=== PATIENT | female | born 1995 | race American Indian/Alaskan Native ===

== ENCOUNTER 2019-04-06 14:45 | Emergency (ER) | payer OTHER ==
--- NOTE | 2019-04-06 14:56 | Emergency Department Report ---
Chief Complaint: Vaginal Bleeding Stated Complaint: STOMACH/BACK PAIN/VAGINAL BLEEDING Time Seen by Provider: 04/06/19 14:53 - HPI History of Present Illness: pt presents for vaginal bleeding that began two days ago states she was late for her menstrual cycle by two weeks denies any vaginal discharge concerned she was and had a miscarriage, did not take a test suprapubic cramping lower back pain /P:0/A:2 no PMHx no allergies to meds no daily meds occ drinker non smoker no drug use MSE screening note: Focused history and physical exam performed. Due to findings the following was ordered: hcg quant, abo/rh, cbc, UA ED Disposition for MSE Condition: Stable
[2019-04-06 15:23] LABS: Basophils % (Auto) 0.6 % (0.0-1.8); Eosinophils # (Auto) 0.1 K/mm3 (0.0-0.4); Eosinophils % (Auto) 1.1 % (0.0-4.3); Hematocrit 30.5 % (30.3-42.9); Hemoglobin 9.3 gm/dl (10.1-14.3); Lymphocytes # (Auto) 2.3 K/mm3 (1.2-5.4); Lymphocytes % (Auto) 27.2 % (13.4-35.0); Mean Corpuscular HGB Conc 31 % (30-34); Monocytes # (Auto) 0.7 K/mm3 (0.0-0.8); Monocytes % (Auto) 8.9 % (0.0-7.3); Platelet Count 417 K/mm3 (140-440); Red Blood Count 4.85 M/mm3 (3.65-5.03); Red Cell Distribution Width 19.5 % (13.2-15.2)
--- NOTE | 2019-04-06 15:24 | Emergency Department Report ---
ED Female HPI - General Chief complaint: Vaginal Bleeding Stated complaint: STOMACH/BACK PAIN/VAGINAL BLEEDING Time Seen by Provider: 04/06/19 14:53 Source: patient Mode of arrival: Ambulatory Limitations: No Limitations - History of Present Illness Initial comments: Patient is a 24-year-old female with a presents emergency room with complaints of vaginal bleeding. Patient states one month ago she was told she was by serum hCG. Patient never followed up with her primary or an [facility]. Patient states she's had vaginal spotting since but today it began bleeding heavily. Patient is also complaining of lower abdominal cramping. Patient states her cramps are a 7 out of 10. Patient states she's also lower back pain. Patient denies chest pain shortness of breath. Patient denies fever and chills. Patient denies vaginal discharge. Patient denies dysuria. MD Complaint: vaginal bleeding -: Sudden Location: suprapubic Radiation: other Severity: severe Severity scale (0 -10): 7 Quality: cramping Consistency: constant Improves with: other Worsens with: movement Are you Now?: Yes Associated Symptoms: vaginal bleeding, abdominal pain. denies: nausea/vomiting, fever/chills, headaches, loss of appetite, dysuria, hematuria, rash, seizure, shortness of breath, syncope, weakness - Related Data Sexually active: Yes Previous Rx's Medication Instructions Recorded Last Taken Type Iron Fum,Ps/Folic/Bcomp,C No.9 1 each PO BID 15 Days #30 capsule 04/06/19 Unknown Rx [Integra Plus Capsule] Sulfamethoxazole/Trimethoprim 1 each PO BID 10 Days #20 tablet 04/06/19 Unknown Rx [Bactrim DS TAB] Allergies Allergy/AdvReac Type Severity Reaction Status Date / Time No Known Allergies Allergy Unverified 04/06/19 14:57 ED Review of Systems ROS: Stated complaint: STOMACH/BACK PAIN/VAGINAL BLEEDING Other details as noted in HPI Constitutional: denies: chills, fever Eyes: denies: eye pain, eye discharge, vision change ENT: denies: ear pain, throat pain Respiratory: denies: cough, shortness of breath, wheezing Cardiovascular: denies: chest pain, palpitations Endocrine: no symptoms reported Gastrointestinal: abdominal pain. denies: nausea, diarrhea Genitourinary: abnormal menses. denies: urgency, dysuria, discharge Musculoskeletal: back pain. denies: joint swelling, arthralgia Skin: denies: rash, lesions Neurological: denies: headache, weakness, paresthesias Psychiatric: denies: anxiety, depression Hematological/Lymphatic: denies: easy bleeding, easy bruising ED Past Medical Hx - Past Medical History Previous Medical History?: Yes Additional medical history: Miscarriage x 1, x 1 - Surgical History Past Surgical History?: No - Family History Family history: no significant - Social History Smoking Status: Never Smoker Substance Use Type: Alcohol - Medications Home Medications: Home Medications Medication Instructions Recorded Confirmed Last Taken Type Iron Fum,Ps/Folic/Bcomp,C No.9 1 each PO BID 15 Days #30 capsule 04/06/19 Unknown Rx [Integra Plus Capsule] Sulfamethoxazole/Trimethoprim 1 each PO BID 10 Days #20 tablet 04/06/19 Unknown Rx [Bactrim DS TAB] ED Physical Exam - General Limitations: No Limitations General appearance: alert, in no apparent distress - Head Head exam: Present: atraumatic, normocephalic - Eye Eye exam: Present: normal appearance, PERRL Pupils: Present: normal accommodation - ENT ENT exam: Present: mucous membranes moist - Neck Neck exam: Present: normal inspection - Respiratory Respiratory exam: Present: normal lung sounds bilaterally. Absent: respiratory distress - Cardiovascular Cardiovascular Exam: Present: regular rate, normal rhythm. Absent: systolic murmur, diastolic murmur, rubs, gallop - GI/Abdominal GI/Abdominal exam: Present: soft, tenderness (suprapubic tenderness), normal bowel sounds - Extremities Exam Extremities exam: Present: normal inspection - Back Exam Back exam: Present: normal inspection - Neurological Exam Neurological exam: Present: alert, oriented X3 - Psychiatric Psychiatric exam: Present: normal affect, normal mood - Skin Skin exam: Present: warm, dry, intact, normal color. Absent: rash ED Course Vital Signs 04/06/19 04/06/19 14:54 15:40 Temperature 98.1 F Pulse Rate 99 H Respiratory 14 Rate Blood Pressure 131/63 - Reevaluation(s) Reevaluation #1: Patient's serum hCG is negative. Patient will have a vaginal ultrasound. 04/06/19 16:17 Discussed all results the patient. Patient stable for discharge. Patient will be discharged home. Patient given discharge instructions. Patient was understanding of all discharge instructions 04/06/19 18:23 ED Medical Decision Making - Lab Data Result diagrams: 04/06/19 15:11 - Radiology Data Radiology results: report reviewed EXAM: US PELVIC COMPLETE, US TRANSVAGINAL HISTORY: vaginal bleed. pelvic pain. TECHNIQUE: Transabdominal and transvaginal sonogram of the pelvis was performed. COMPARISON: None FINDINGS: The uterus is 8.9 x 4.9 x 4.9 cm and appears normal. The endometrial stripe thickness is normal at 4.2 mm. The ovaries are within normal limits and measure 2.9 x 2.5 x 2.0 cm on the right and 2.8 x 0.8 x 2.2 cm on the left. Doppler vascular flow is demonstrated to the ovaries. No adnexal mass seen. No free fluid. IMPRESSION: Negative pelvic sonogram. - Medical Decision Making Patient is a 24-year-old female presents to emergency room with lower abdominal cramps and vaginal bleeding. Patient's ultrasound is negative. Patient's vaginal bleeding appears to be secondary to a normal menstrual period. Patient found to have a UTI. Patient was treated with antibiotics. Rest of labs unremarkable except for anemia. Patient was given an iron supplement. Patient will need to follow up with her primary care for further evaluation and treatment and recheck of her blood count within a week. Patient will also require to see a C[facility] for further eval and treatment. - Differential Diagnosis vaginal bleeding. Normal menstruation. UTI. Abdominal pain. Critical care attestation.: If time is entered above; I have spent that time in minutes in the direct care of this critically ill patient, excluding procedure time. ED Disposition Clinical Impression: Abnormal menses, Abdominal cramping UTI (urinary tract infection) Qualifiers: Urinary tract infection type: acute cystitis Hematuria presence: with hematuria Qualified Code(s): N30.01 - Acute cystitis with hematuria Abdominal pain Qualifiers: Abdominal location: lower abdomen, unspecified Qualified Code(s): R10.30 - Lower abdominal pain, unspecified Disposition: TO HOME OR SELFCARE Is pt being admited?: No Does the pt Need Aspirin: No Condition: Stable Instructions: Urinary Tract Infection in Women (ED), Menstruation (ED) Additional Instructions: Patient follow up with primary care in 2-3 days. Patient is to follow-up with [facility] in 2-3 days. Patient to return to ER if condition worsens. Patient to take Tylenol or ibuprofen when necessary for pain. Patient to rest. Patient to take meds as directed. Continue all home medications. Patient to increase water. Prescriptions: Sulfamethoxazole/Trimethoprim [Bactrim DS TAB] 1 each PO BID 10 Days #20 tablet Iron Fum,Ps/Folic/Bcomp,C No.9 [Integra Plus Capsule] 1 each PO BID 15 Days #30 capsule Referrals: PRIMARY CAREMD [Referring] - 2-3 Days BITA HAN MD [Staff Physician] - 2-3 Days Time of Disposition: 18:20
[2019-04-06 15:30] LABS: Mean Corpuscular Volume 63 fl (79-97)
[2019-04-06 16:14] LABS: Bilirubin,Urine NEG (Negative); Blood,Urine LG (Negative); Color,Urine Red (Yellow); Mucus,Urine FEW /HPF; Urobilinogen,Urine < 2.0 mg/dL (<2.0)
[2019-04-06 16:16] LABS: RBC,Urine > 182.0 /HPF (0.0-6.0)
--- NOTE | 2019-04-06 18:06 | Ultrasound Report ---
EXAM: US PELVIC COMPLETE, US TRANSVAGINAL HISTORY: vaginal bleed. pelvic pain. TECHNIQUE: Transabdominal and transvaginal sonogram of the pelvis was performed. COMPARISON: None FINDINGS: The uterus is 8.9 x 4.9 x 4.9 cm and appears normal. The endometrial stripe thickness is normal at 4.2 mm. The ovaries are within normal limits and measure 2.9 x 2.5 x 2.0 cm on the right and 2.8 x 0.8 x 2.2 cm on the left. Doppler vascular flow is demonstrated to the ovaries. No adnexal mass seen. No free fluid. IMPRESSION: Negative pelvic sonogram. This document is electronically signed by Kwan Kaplan MD., Apr 06 2019 06:04:07 PM ET
[2019-04-06] MEDS ORDERED: ROCEPHIN/NS 1 GM/50 ML 1 GM/50 ML BAG IV ONE (18:14)
[2019-04-06 18:33] VITALS: BP 118/75
== END 2019-04-06 19:15 | disposition home or self-care (01) ==
LOC: ED 14:45
DX: N30.01 Acute cystitis with hematuria (principal); N94.89 Other specified conditions associated with female genital organs and menstrual cycle
CPT/HCPCS: 36415; 76830; 76856; 81001; 84702; 85025; 86900; 86901; 96365; 99284; J0696

== ENCOUNTER 2019-12-17 13:50 | Emergency (ER) | payer SELFPAY ==
[2019-12-17] MEDS ORDERED: KETOROLAC 60 MG/2 ML INJ IM ONE (16:04)
--- NOTE | 2019-12-17 16:04 | Emergency Department Report ---
ED Back Pain/Injury HPI - General Chief Complaint: Abdominal Pain Stated Complaint: ABD PAIN, MENSTIAL CYCLE Time Seen by Provider: 12/17/19 16:00 Source: patient Limitations: No Limitations - History of Present Illness Initial Comments: 24 YO AA FEMALE COMES TO ER WITH HER USUAL MENSTRUAL CRAMPS. LMP 11/13. NO CONCERNED PREG. NO VAG DC. AMBULATORY AND NON ILL APPEARING - Related Data Previous Rx's Medication Instructions Recorded Last Taken Type Ibuprofen [Motrin] 800 mg PO Q8HR PRN #30 tablet 12/17/19 Unknown Rx Allergies Allergy/AdvReac Type Severity Reaction Status Date / Time No Known Allergies Allergy Unverified 04/06/19 14:57 ED Review of Systems ROS: Stated complaint: ABD PAIN, MENSTIAL CYCLE Other details as noted in HPI Comment: All other systems reviewed and negative ED Past Medical Hx - Past Medical History Miscarriage x 1, x 1 Family history: no significant family history ED Back Pain Physical Exam - Exam General: Vital signs noted. No distress. Alert and acting appropriately. Back/Abdomen: No Abdominal Tenderness, No Perithoracic Tenderness, No Perilumbar Tenderness, No Sacroiliac Tenderness, No Flank Tenderness, No Straight Leg Raise Pain Neuro: Yes Normal Sensation, Yes Normal DTR's, Yes Normal Gait, No Motor Weakness ED Course Vital Signs 12/17/19 14:01 Temperature 98.2 F Pulse Rate 87 Respiratory 16 Rate Blood Pressure 147/65 O2 Sat by Pulse 97 Oximetry ED Medical Decision Making - Medical Decision Making pt comes to ER with her usual menstrual cramps states she does not have obgyn states motrin did not help no vag dc no fever ambulatory and non toxic toradol IM dc home with obgyn follow up Vital Signs 12/17/19 14:01 Temperature 98.2 F Pulse Rate 87 Respiratory 16 Rate Blood Pressure 147/65 O2 Sat by Pulse 97 Oximetry - Differential Diagnosis MENSTRUAL PAIN- USUAL Critical care attestation.: If time is entered above; I have spent that time in minutes in the direct care of this critically ill patient, excluding procedure time. ED Disposition Clinical Impression: Menstrual cramps Disposition: DC-01 TO HOME OR SELFCARE Is pt being admited?: No Does the pt Need Aspirin: No Condition: Stable Instructions: Menstruation (ED) Additional Instructions: warm compresses FOLLOW UP WITH OBGYN REFERRAL BELOW Prescriptions: Ibuprofen [Motrin] 800 mg PO Q8HR PRN #30 tablet PRN Reason: Pain, Moderate (4-6) Referrals: GAUTAM DOAN MD [Staff Physician] - 3-5 Days Time of Disposition: 16:03
[2019-12-17 17:16] VITALS: BP 141/70
== END 2019-12-17 16:30 | disposition home or self-care (01) ==
LOC: ED 13:50
DX: N94.6 Dysmenorrhea, unspecified (principal); Z79.899 Other long term (current) drug therapy
CPT/HCPCS: 96372; 99282; J1885

== ENCOUNTER 2020-01-20 09:24 | Emergency (ER) | payer SELFPAY ==
[2020-01-20 09:48] VITALS: BP 121/64
--- NOTE | 2020-01-20 12:15 | Emergency Department Report ---
ED ENT HPI - General Chief complaint: Dental/Oral Stated complaint: TOOTH PAIN Time Seen by Provider: 01/20/20 11:22 Source: patient Mode of arrival: Ambulatory Limitations: No Limitations - History of Present Illness Initial comments: This is a 24-year-old female nontoxic, well nourished in appearance, no acute signs of distress presents to the ED with c/o of left upper and lower toothache 4 months. Patient denies following up with a dentist. Patient describes toothache as aching level of 8 out of 10. Patient denies any facial swelling. Patient denies any numbness, tingling, fever, chills, headache, stiff neck, abdominal pain, chest pain, shortness of breath. Patient denies any drug allergies or significant past medical history. MD complaint: tooth pain -: month(s) Location: tooth # 1 - pain here Severity: mild Severity scale (0 -10): 8 Quality: aching Consistency: constant Improves with: none Worsens with: none Associated Symptoms: toothache. denies: fever, cough, gum swelling, pain with swallowing, sore throat, tinnitus, hearing loss, discharge from ear, rhinorrhea - Related Data Previous Rx's Medication Instructions Recorded Last Taken Type Ibuprofen [Motrin] 800 mg PO Q8HR PRN #30 tablet 12/17/19 Unknown Rx Allergies Allergy/AdvReac Type Severity Reaction Status Date / Time No Known Allergies Allergy Unverified 04/06/19 14:57 ED Dental HPI - General Chief complaint: Dental/Oral Stated complaint: TOOTH PAIN Time Seen by Provider: 01/20/20 11:22 Source: patient Mode of arrival: Ambulatory Limitations: No Limitations - Related Data Previous Rx's Medication Instructions Recorded Last Taken Type Ibuprofen [Motrin] 800 mg PO Q8HR PRN #30 tablet 12/17/19 Unknown Rx Allergies Allergy/AdvReac Type Severity Reaction Status Date / Time No Known Allergies Allergy Unverified 04/06/19 14:57 ED Review of Systems ROS: Stated complaint: TOOTH PAIN Other details as noted in HPI Constitutional: denies: chills, fever Eyes: denies: eye pain, eye discharge, vision change ENT: dental pain. denies: ear pain, throat pain Respiratory: denies: cough, shortness of breath, wheezing Cardiovascular: denies: chest pain, palpitations Endocrine: no symptoms reported Gastrointestinal: denies: abdominal pain, nausea, diarrhea Genitourinary: denies: urgency, dysuria, discharge Musculoskeletal: denies: back pain, joint swelling, arthralgia Skin: denies: rash, lesions Neurological: denies: headache, weakness, paresthesias Psychiatric: denies: anxiety, depression Hematological/Lymphatic: denies: easy bleeding, easy bruising ED Past Medical Hx - Past Medical History Previous Medical History?: Yes Additional medical history: Miscarriage x 1, x 1 - Surgical History Past Surgical History?: No - Social History Smoking Status: Never Smoker Substance Use Type: None - Medications Home Medications: Home Medications Medication Instructions Recorded Confirmed Last Taken Type Ibuprofen [Motrin] 800 mg PO Q8HR PRN #30 tablet 12/17/19 Unknown Rx ED Physical Exam - General Limitations: No Limitations General appearance: alert, in no apparent distress - Head Head exam: Present: atraumatic, normocephalic - Expanded ENT Exam Expanded Ear exam: Present: normal external inspection Mouth exam: Present: normal external inspection. Absent: drooling, trismus, muffled voice Teeth exam: Present: dental tenderness #, other (uvula midline. no abscesss). Absent: dental caries, fractured tooth #, gingival enlargement Throat exam: Positive: normal inspection. Negative: tonsillar erythema, tonsillomegaly, tonsillar exudate, R peritonsillar mass, L peritonsillar mass - Extremities Exam Extremities exam: Present: full ROM - Back Exam Back exam: Present: full ROM - Neurological Exam Neurological exam: Present: alert, oriented X3, normal gait - Psychiatric Psychiatric exam: Present: normal affect, normal mood - Skin Skin exam: Present: warm, dry, intact, normal color. Absent: rash ED Course Vital Signs 01/20/20 09:47 Temperature 98.6 F Pulse Rate 86 Respiratory 18 Rate Blood Pressure 121/64 [Right] O2 Sat by Pulse 100 Oximetry - Reevaluation(s) Reevaluation #1: 01/20/20 12:15 Patient is speaking in full sentences with no signs of distress noted. ED Medical Decision Making - Medical Decision Making 24-year-old female that presents with chronic toothache. Patient is stable and was examined by me. Patient does not present with a medical emergency currently. There is no abscess or cellulitis noted. Patient d was given referrals to see a dentist. At time of discharge, the patient does not seem toxic or ill in appearance. No acute signs of distress noted. Patient agrees to discharge treatment plan of care. No further questions noted by the patient. Critical care attestation.: If time is entered above; I have spent that time in minutes in the direct care of this critically ill patient, excluding procedure time. ED Disposition Clinical Impression: Toothache Disposition: Z-07 MED SCREENING EXAM-LEFT Is pt being admited?: No Does the pt Need Aspirin: No Condition: Stable Instructions: Toothache (ED) Additional Instructions: Follow-up with a dentist doctor in 3-5 days or if symptoms worsen and continue return to emergency room as soon as possible. Referrals: PRIMARY MD AMY [Primary Care Provider] - 3-5 Days SUSAN MENDOZA MD [Staff Physician] - 3-5 Days [facility] [Outside] - 3-5 Days [facility] [Outside] - 3-5 Days
== END 2020-01-20 12:36 | disposition left against medical advice (07) ==
LOC: ED 09:24
DX: K08.89 Other specified disorders of teeth and supporting structures (principal)
CPT/HCPCS: 99281

== ENCOUNTER 2020-04-21 11:30 | Emergency (ER) | payer SELFPAY ==
[2020-04-21 11:56] VITALS: BP 133/74
[2020-04-21 13:06] LABS: HCG Qualitative,Urine Positive (Negative)
--- NOTE | 2020-04-21 16:34 | Emergency Department Report ---
ED General Adult HPI - General Chief complaint: Abdominal Pain Stated complaint: PELVIC PAIN PUI?: No Time Seen by Provider: 04/21/20 13:36 Source: patient Mode of arrival: Ambulatory Limitations: No Limitations - History of Present Illness Initial comments: This 25-year-old female presents the ED complaining of pelvic pain status post fall while she was at work today. Patient states she slipped on a carpet and fell. Patient denies any injuries or trauma to the head and neck abdomen or back. She denies fever/chills/nausea or vomiting vaginal bleeding, vaginal discharge, dysuria or any other problems. - Related Data Previous Rx's Medication Instructions Recorded Last Taken Type Ibuprofen [Motrin] 800 mg PO Q8HR PRN #30 tablet 12/17/19 Unknown Rx Allergies Allergy/AdvReac Type Severity Reaction Status Date / Time No Known Allergies Allergy Unverified 04/06/19 14:57 ED Review of Systems ROS: Stated complaint: PELVIC PAIN Other details as noted in HPI Comment: All other systems reviewed and negative ED Past Medical Hx - Past Medical History Previous Medical History?: No Additional medical history: Miscarriage x 1, x 1 - Surgical History Past Surgical History?: No - Social History Smoking Status: Never Smoker - Medications Home Medications: Home Medications Medication Instructions Recorded Confirmed Last Taken Type Ibuprofen [Motrin] 800 mg PO Q8HR PRN #30 tablet 12/17/19 Unknown Rx ED Physical Exam - General Limitations: No Limitations General appearance: alert, in no apparent distress - Head Head exam: Present: atraumatic, normocephalic - Eye Eye exam: Present: normal appearance - ENT ENT exam: Present: mucous membranes moist - Neck Neck exam: Present: normal inspection - Respiratory Respiratory exam: Present: normal lung sounds bilaterally. Absent: respiratory distress - Cardiovascular Cardiovascular Exam: Present: regular rate, normal rhythm. Absent: systolic murmur, diastolic murmur, rubs, gallop - GI/Abdominal GI/Abdominal exam: Present: soft, distended (Gravid, uterine palpated above bellybutton), normal bowel sounds. Absent: tenderness, guarding, rebound - Extremities Exam Extremities exam: Present: normal inspection - Back Exam Back exam: Present: normal inspection, full ROM. Absent: tenderness, CVA tenderness (R), CVA tenderness (L) - Neurological Exam Neurological exam: Present: alert, oriented X3 - Psychiatric Psychiatric exam: Present: normal affect, normal mood - Skin Skin exam: Present: warm, dry, intact, normal color. Absent: rash ED Course Vital Signs 04/21/20 04/21/20 11:49 17:55 Temperature 98.2 F Pulse Rate 100 H 89 Respiratory 16 Rate Blood Pressure 133/74 O2 Sat by Pulse 98 Oximetry - Reevaluation(s) Reevaluation #1: Upon my evaluation of patient and noticed gravid abdomen and inquired about patient states she does not know she is . I did ask her last menstrual cycle which she stated was in October 2019. Patient has not been to any primary care or clinic to seek care after that. Patient stated that she was seen here in early November and was told she was not so she did not think she was. Ultrasound ordered and pending 04/21/20 16:33 05/22/20 08:31 ED Medical Decision Making - Radiology Data Radiology results: report reviewed, image reviewed US OB >= 14 weeks Fetus INDICATION / CLINICAL INFORMATION: pelv pain. COMPARISON: None available. FINDINGS: A single live fetus of approximately 25 weeks 6 days gestational age is seen in cephalic presentation. The placenta is grade 0, posterior and free of the os. heart rate is 138. A normal amount of amniotic fluid is present. Estimated weight is 869 g BPD is 6.2 equaling 25 weeks 2 days Head circumference is 24.2 equals 26 weeks 2 days Abdominal circumference is 21.0 equaling 25 weeks 4 days Femur length is 4.9 equals in 26 weeks 3 days. There may be mild renal pelvis dilatation in the left kidney. The stomach, right kidney, bladder, diaphragm, heart, umbilical cord and cord insertion are normal. The spine and intracranial structures are unremarkable in appearance. IMPRESSION: Single live fetus of approximately 25 weeks 6 days gestational age in cephalic presentation. A normal amount of amniotic fluid is present. heart rate is 138 and estimated weight is 869 g. Cervix length is 5.2 cm. There may be mild renal pelvis dilatation in the left kidney Signer Name: Frankie Montiel MD FACR Signed: 04/21/2020 5:14 PM Workstation Name: [id number] Transcribed By: MS Dictated By: Frankie Montiel MD Electronically Authenticated By: Frankie Montiel MD Signed Date/Time: 04/21/20 0564 - Medical Decision Making This 25-year-old female who presented to ED status post fall. test was obtained which was positive due to patient's complaint of pelvic pain. Ultrasound was then ordered showing patient about 25 weeks gestation. Ultrasound report shows single IUP measuring 25 weeks heart rate with a heart rate of 138 Discussed all these findings with the patient. Discussed with patient to follow-up with [facility] as soon as possible. Discussed with patient to only take Tylenol as needed for pain. Discussed with patient if any worsening symptoms or any new symptoms to return to ED immediately. Critical care attestation.: If time is entered above; I have spent that time in minutes in the direct care of this critically ill patient, excluding procedure time. ED Disposition Clinical Impression: Fall, Normal in third trimester Disposition: DC-01 TO HOME OR SELFCARE Is pt being admited?: No Does the pt Need Aspirin: No Condition: Stable Instructions: (ED), Abdominal Pain (ED), Musculoskeletal Pain (ED) Additional Instructions: Make sure to follow up with the [facility] as discussed. 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 Only take Tylenol as needed for pain. If you have any worsening symptoms or develop new symptoms please return to ED immediately. Referrals: PRIMARY CARE, [Primary Care Provider] - 3-5 Days [facility] [Provider Group] - 3-5 Days [facility] [Provider Group] - 3-5 Days [facility] [Provider Group] - 3-5 Days Forms: Accompanied Note, Work/School Release Form(ED)
--- NOTE | 2020-04-21 17:18 | Ultrasound Report ---
US OB >= 14 weeks Fetus INDICATION / CLINICAL INFORMATION: pelv pain. COMPARISON: None available. FINDINGS: A single live fetus of approximately 25 weeks 6 days gestational age is seen in cephalic presentation . The placenta is grade 0, posterior and free of the os. heart rate is 138. A normal amount of amniotic fluid is present. Estimated weight is 869 g BPD is 6.2 equaling 25 weeks 2 days Head circumference is 24.2 equals 26 weeks 2 days Abdominal circumference is 21.0 equaling 25 weeks 4 days Femur length is 4.9 equals in 26 weeks 3 days. There may be mild renal pelvis dilatation in the left kidney. The stomach, right kidney, bladder, diaphragm, heart, umbilical cord and cord ins ertion are normal. The spine and intracranial structures are unremarkable in appearance. IMPRESSION: Single live fetus of approximately 25 weeks 6 days gestational age in cephalic presentation. A normal amount of amniotic fluid is present. heart rate is 138 and estimated weight is 869 g. Cervix length is 5.2 cm. There may be mild renal pelvis dilatation in the left kidney Signer Name: Frankie Montiel MD FACR Signed: 04/21/2020 5:14 PM Workstation Name: [id number]
== END 2020-04-21 18:02 | disposition home or self-care (01) ==
LOC: ED 11:30
DX: O26.893 Other specified pregnancy related conditions, third trimester (principal); R10.2 Pelvic and perineal pain; Z79.899 Other long term (current) drug therapy; Z3A.26 26 weeks gestation of pregnancy; Z98.890 Other specified postprocedural states; W01.0XXA Fall on same level from slipping, tripping and stumbling without subsequent striking against object, initial encounter; Y93.89 Activity, other specified; Y92.89 Other specified places as the place of occurrence of the external cause; Y99.8 Other external cause status
CPT/HCPCS: 76805; 81025